=== PATIENT | female | born 1990 | race American Indian/Alaskan Native ===

== ENCOUNTER 2021-07-17 09:00 | Emergency (ER) | payer MEDICAID ==
[2021-07-17 09:07] VITALS: BP 124/78
--- NOTE | 2021-07-17 09:47 | Emergency Department Report ---
ED Female HPI - General Chief complaint: Urogenital-Female Stated complaint: VAGINAL BLEEDING- Time Seen by Provider: 07/17/21 09:31 Source: patient Mode of arrival: Ambulatory Limitations: No Limitations - History of Present Illness Initial comments: During the history and physical examination, I am chaperoned by STEVE BRIONES Patient is a 30-year-old female. She is not known to myself previously. She is 1, para 0. She presents to the ER today with a complaint of painless vaginal bleeding after vigorous sexual intercourse. It is now resolved. She denies additional complaints. She feels like she is back to her baseline MD Complaint: vaginal bleeding -: days(s) Consistency: intermittent Improves with: none Worsens with: none Are you Now?: Yes Associated Symptoms: denies other symptoms, vaginal discharge - Related Data Previous Rx's Medication Instructions Recorded Last Taken Type Vit-Fe Fumar-FA [ 1 tab PO QDAY #30 tablet 07/17/21 Unknown Rx Vitamin] Allergies Allergy/AdvReac Type Severity Reaction Status Date / Time No Known Allergies Allergy Unverified 07/17/21 09:04 ED Review of Systems ROS: Stated complaint: VAGINAL BLEEDING- Other details as noted in HPI Comment: All other systems reviewed and negative Genitourinary: other (Vaginal bleeding.). denies: dysuria, frequency ED Past Medical Hx - Medications Home Medications: Home Medications Medication Instructions Recorded Confirmed Last Taken Type Vit-Fe Fumar-FA [ 1 tab PO QDAY #30 tablet 07/17/21 Unknown Rx Vitamin] ED Physical Exam - General Limitations: No Limitations General appearance: alert, in no apparent distress - Head Head exam: Present: atraumatic, normocephalic - Eye Eye exam: Present: normal appearance, EOMI. Absent: nystagmus - ENT ENT exam: Present: normal exam, normal orophraynx, mucous membranes moist, normal external ear exam - Neck Neck exam: Present: normal inspection, full ROM. Absent: tenderness, meningismus - Respiratory Respiratory exam: Present: normal lung sounds bilaterally. Absent: respiratory distress, wheezes, rales, rhonchi, stridor, decreased breath sounds - Cardiovascular Cardiovascular Exam: Present: regular rate, normal rhythm, normal heart sounds. Absent: bradycardia, tachycardia, irregular rhythm, systolic murmur, diastolic murmur, rubs, gallop - GI/Abdominal GI/Abdominal exam: Present: soft. Absent: distended, tenderness, guarding, rebound, rigid, pulsatile mass - External exam: Present: normal external exam, other (Chaperoned by STEVE BRIONES). Absent: erythema, swelling, lacerations, ecchymosis, bleeding Speculum exam: Present: normal speculum exam. Absent: erythema, vaginal discharge, vaginal bleeding - Extremities Exam Extremities exam: Present: normal inspection, full ROM, other (2+ pulses noted in the bilateral upper and lower extremities. There is no palpable cord. negative Homans sign. Muscular compartments are soft. The pelvis is stable.). Absent: pedal edema, calf tenderness - Back Exam Back exam: Present: normal inspection, full ROM. Absent: tenderness, CVA tenderness (R), CVA tenderness (L), paraspinal tenderness, vertebral tenderness - Neurological Exam Neurological exam: Present: alert, oriented X3, normal gait, other (No facial droop. Tongue midline. Extraocular movements intact bilaterally. Facial sensation intact to light touch in V1, V2, V3 distribution bilaterally. 5 and a 5 strength in 4 extremities. Sensation intact to light touch in 4 extremities.). Absent: motor sensory deficit - Psychiatric Psychiatric exam: Present: normal affect, normal mood - Skin Skin exam: Present: warm, dry, intact, normal color. Absent: rash ED Course Vital Signs 07/17/21 09:06 Temperature 98.0 F Pulse Rate 82 Respiratory 16 Rate Blood Pressure 124/78 [Right] O2 Sat by Pulse 98 Oximetry ED Medical Decision Making - Lab Data Result diagrams: 07/17/21 09:54 Vital Signs 07/17/21 09:06 Temperature 98.0 F Pulse Rate 82 Respiratory 16 Rate Blood Pressure 124/78 [Right] O2 Sat by Pulse 98 Oximetry Lab Results 07/17/21 07/17/21 07/17/21 Range/Units 09:54 09:54 09:54 WBC 4.4 L (4.5-11.0) K/mm3 RBC 3.94 (3.65-5.03) M/mm3 Hgb 11.6 (10.1-14.3) gm/dl Hct 35.9 (30.3-42.9) % MCV 91 (79-97) fl MCH 30 (28-32) pg MCHC 33 (30-34) % RDW 14.3 (13.2-15.2) % Plt Count 304 (140-440) K/mm3 HCG, Quant 4319 H (0-4) mIU/mL Urine Color (Yellow) Urine Turbidity (Clear) Urine pH (5.0-7.0) Ur Specific [place] (1.003-1.030) Urine Protein (Negative) mg/dL Urine Glucose (UA) (Negative) mg/dL Urine Ketones (Negative) mg/dL Urine Blood (Negative) Urine Nitrite (Negative) Urine Bilirubin (Negative) Urine Urobilinogen (<2.0) mg/dL Ur Leukocyte Esterase (Negative) Urine WBC (Auto) (0.0-6.0) /HPF Urine RBC (Auto) (0.0-6.0) /HPF U Epithel Cells (Auto) (0-13.0) /HPF Urine Mucus /HPF Blood Type B POSITIVE Antibody Screen Negative 07/17/21 Range/Units 11:52 WBC (4.5-11.0) K/mm3 RBC (3.65-5.03) M/mm3 Hgb (10.1-14.3) gm/dl Hct (30.3-42.9) % MCV (79-97) fl MCH (28-32) pg MCHC (30-34) % RDW (13.2-15.2) % Plt Count (140-440) K/mm3 HCG, Quant (0-4) mIU/mL Urine Color Yellow (Yellow) Urine Turbidity Clear (Clear) Urine pH 7.0 (5.0-7.0) Ur Specific [place] 1.012 (1.003-1.030) Urine Protein <15 mg/dl (Negative) mg/dL Urine Glucose (UA) Neg (Negative) mg/dL Urine Ketones Neg (Negative) mg/dL Urine Blood Lg (Negative) Urine Nitrite Neg (Negative) Urine Bilirubin Neg (Negative) Urine Urobilinogen < 2.0 (<2.0) mg/dL Ur Leukocyte Esterase Neg (Negative) Urine WBC (Auto) 2.0 (0.0-6.0) /HPF Urine RBC (Auto) 2.0 (0.0-6.0) /HPF U Epithel Cells (Auto) 5.0 (0-13.0) /HPF Urine Mucus Few /HPF Blood Type Antibody Screen - Radiology Data Radiology results: report reviewed, image reviewed ULTRASOUND OBSTETRIC INDICATION / CLINICAL INFORMATION: Painless vaginal bleeding. TECHNIQUE: Transabdominal. COMPARISON: None available. FINDINGS: GESTATIONAL SAC: Well-defined oval shape and intrauterine in location. YOLK SAC: No significant abnormality. EMBRYO/FETUS: No significant abnormality. - [place]-Rump Length = 0.63 cm = 6 weeks, 3 day(s). - Heart Rate, beats per minute (if present) = 100 ADNEXA: No significant abnormality. FREE FLUID: None. ADDITIONAL FINDINGS: None. IMPRESSION: 1. Single, living intrauterine with estimated sonographic age of 6 weeks, 3 day(s). Signer Name: Tushar Bocanegra MD Signed: 07/17/2021 9:52 AM Workstation Name: [id number] - Medical Decision Making Differential diagnosis, including but not limited to: Bacteriuria, urinary tract infection, threatened miscarriage, encounter for test, encounter for ultrasound Assessment and plan: 30-year-old female, who was afebrile, with reassuring vital signs, Rh+, urinalysis not requiring antibiotics, ultrasound shows IUP, stable CBC, soft benign belly, patient in no acute distress. This is most likely a threatened miscarriage. Rest, pelvic rest, outpatient follow-up, return precautions including cautions. She is not bleeding on my pelvic exam at this time. I discussed this with the patient. She articulated understanding. All questions answered Critical care attestation.: If time is entered above; I have spent that time in minutes in the direct care of this critically ill patient, excluding procedure time. ED Disposition Clinical Impression: Threatened miscarriage in early Disposition: 01 HOME / SELF CARE / HOMELESS Is pt being admited?: No Does the pt Need Aspirin: No Condition: Good Instructions: Threatened Miscarriage Additional Instructions: Please take the vitamins as directed. Rest, avoid heavy lifting and strenuous physical activity. Avoid sexual activity. Laboratory studies were unremarkable today. Ultrasound and intrauterine , at 6 weeks and 3 days. Patient most likely having a form of threatened miscarriage. There is no specific medication treatment for this. Treatment is rest, avoidance of heavy lifting, and avoidance of sexual activity. Please follow-up with your outpatient [facility] doctor within the next week for outpatient care. Please return to the emergency room right away with new pain, worsened pain, migration of pain, rectal vomiting, change in mental status, confusion, inability to tolerate liquid feeds, bleeding more than 2 pads soaked per hour, or any new, worsened or different symptoms not present on the initial emergency room evaluation Prescriptions: Vit-Fe Fumar-FA [ Vitamin] 1 tab PO QDAY #30 tablet Referrals: [facility] [Provider Group] - 3-5 Days Forms: Work/School Release Form(ED)
[2021-07-17 10:24] LABS: Hematocrit 35.9 % (30.3-42.9); Hemoglobin 11.6 gm/dl (10.1-14.3); Mean Corpuscular HGB Conc 33 % (30-34); Mean Corpuscular Volume 91 fl (79-97); Platelet Count 304 K/mm3 (140-440); Red Blood Count 3.94 M/mm3 (3.65-5.03); Red Cell Distribution Width 14.3 % (13.2-15.2)
--- NOTE | 2021-07-17 10:56 | Ultrasound Report ---
ULTRASOUND OBSTETRIC INDICATION / CLINICAL INFORMATION: Painless vaginal bleeding. TECHNIQUE: Transabdominal. COMPARISON: None available. FINDINGS: GESTATIONAL SAC: Well-defined oval shape and intrauterine in location. YOLK SAC: No significant abnormality. EMBRYO/FETUS: No significant abnormality. - [place]-Rump Length = 0.63 cm = 6 weeks, 3 day(s). - Heart Rate, beats per minute (if present) = 100 ADNEXA: No significant abnormality. FREE FLUID: None. ADDITIONAL FINDINGS: None. IMPRESSION: 1. Single, living intrauterine with estimated sonographic age of 6 weeks, 3 day(s). Signer Name: Tushar Bocanegra MD Signed: 07/17/2021 10:52 AM Workstation Name: [id number]
[2021-07-17 12:14] LABS: Bilirubin,Urine NEG (Negative); Blood,Urine LG (Negative); Color,Urine Yellow (Yellow); Mucus,Urine FEW /HPF; Protein,Urine <15 mg/dL mg/dL (Negative); Urobilinogen,Urine < 2.0 mg/dL (<2.0)
== END 2021-07-17 13:35 | disposition home or self-care (01) ==
LOC: ED 09:00
DX: O20.0 Threatened abortion (principal); Z3A.01 Less than 8 weeks gestation of pregnancy
CPT/HCPCS: 36415; 76801; 81001; 84702; 85027; 86850; 86900; 86901

== ENCOUNTER 2021-07-19 07:52 | Emergency (ER) | payer MEDICAID ==
[2021-07-19 07:57] VITALS: BP 119/75
--- NOTE | 2021-07-19 08:14 | Emergency Department Report ---
ED Female HPI - General Chief complaint: Vaginal Bleeding Stated complaint: Passing clots, Time Seen by Provider: 07/19/21 07:59 Source: patient, old records reviewed Mode of arrival: Ambulatory Limitations: No Limitations - History of Present Illness Initial comments: 30 year-old female presents to the ER today with complaints of vaginal bleeding and being . Patient states that she is about 6 weeks . Last menstrual cycle was 05/20/2021. Patient states that she started with bleeding about 4 days ago. She states that she thought it was related to her having sexual intercourse the night before. It was mild at the time, but then by Saturday bleeding got worse. She did come here to the hospital for the bleeding. She had labs as well as an ultrasound done at the time she was seen. She states that she followed up with her [facility]UR[facility] T[facility]OR the following day and had repeat labs and an ultrasound. She states that she was supposed to follow-up today with her PROFESSIONAL NURSING TUTOR, around 11:00 but last night she started passing large clots including this morning and so she decided come here. She states that since the bleeding started she has been changing about 1-2 pads per day. She reports minor abdominal cramping. She denies any UTI symptoms. She denies any fever or chills. She is G9, P3 AB 5. Patient was seen here in 07/17/2021 --she had OB ultrasound showed live IUP measuring 6 weeks 3 days, quantitative hCG measured 4319 and her Rh type is B+. Complaint: vaginal bleeding -: days(s) - Related Data Previous Rx's Medication Instructions Recorded Last Taken Type Vit-Fe Fumar-FA [ 1 tab PO QDAY #30 tablet 07/17/21 Unknown Rx Vitamin] Allergies Allergy/AdvReac Type Severity Reaction Status Date / Time No Known Allergies Allergy Unverified 07/17/21 09:04 ED Review of Systems ROS: Stated complaint: Passing clots, Other details as noted in HPI Comment: All other systems reviewed and negative Constitutional: denies: chills, diaphoresis, fever, malaise, weakness Eyes: denies: eye pain, eye discharge, vision change ENT: denies: ear pain, throat pain, dental pain, hearing loss, epistaxis, congestion Respiratory: denies: cough, shortness of breath, wheezing Cardiovascular: denies: chest pain, palpitations Gastrointestinal: abdominal pain. denies: nausea, vomiting, diarrhea, constipation, hematemesis, melena, hematochezia Genitourinary: other (vag bleeding ). denies: urgency, dysuria, frequency, hematuria, discharge, abnormal menses, dyspareunia Musculoskeletal: denies: back pain, joint swelling, arthralgia Skin: denies: rash, lesions, change in color, change in hair/nails, pruritus Neurological: denies: headache, weakness, numbness, paresthesias, confusion, abnormal gait, vertigo Psychiatric: denies: anxiety, depression, auditory hallucinations, visual hallucinations, homicidal thoughts, suicidal thoughts ED Past Medical Hx - Medications Home Medications: Home Medications Medication Instructions Recorded Confirmed Last Taken Type Vit-Fe Fumar-FA [ 1 tab PO QDAY #30 tablet 07/17/21 Unknown Rx Vitamin] ED Physical Exam - General Limitations: No Limitations ED Course Vital Signs 07/19/21 07/19/21 07/19/21 07:55 07:57 10:36 Temperature 98.7 F Pulse Rate 114 H 96 H Respiratory 15 Rate Blood Pressure 119/75 O2 Sat by Pulse 100 Oximetry ED Medical Decision Making - Lab Data Result diagrams: 07/19/21 09:41 - Medical Decision Making labs reviewed -- CBC unremarkable. Patient quant HCG today is 663.9. On 07/17 it was 4319. Given drop in HCG levels, pt likely having miscarriage. Discussed results with patient. She states she was able to reschedule her OBGYN appt for july 26. Recommend she keeps her appointment, as OBGYN will need to continue monitoring HCG levels and make sure she does not need D&C. Informed patient that is likely to continue to bleed and have cramps. She understands to return to ED if her bleeding significantly worsens. Pt not toxic or ill appearing and not in any significant distress. Her VS stable. Patient expressed understanding of all instructions and agreed with plan. Pt was stable at time of discharge. Critical care attestation.: If time is entered above; I have spent that time in minutes in the direct care of this critically ill patient, excluding procedure time. ED Disposition Clinical Impression: Miscarriage Disposition: HOME / SELF CARE / HOMELESS Is pt being admited?: No Does the pt Need Aspirin: No Condition: Stable Instructions: Miscarriage, Onqw-pb-Hint Additional Instructions: Based on work up today, it appears that you are having a miscarriage. Your quantitative hCG dropped from 4319 to 663.9. I recommend that you continue to follow up with your OBGYN to continue monitoring your HCG. You can take tylenol and or ibuprofen as needed for pain. Return to ED if worse Referrals: PRIMARY CARE, [Primary Care Provider] - 3-5 Days Time of Disposition: 10:32
[2021-07-19 10:19] LABS: Basophils % (Auto) 1.1 % (0.0-1.8); Eosinophils % (Auto) 0.1 % (0.0-4.3); Hematocrit 35.5 % (30.3-42.9); Hemoglobin 11.4 gm/dl (10.1-14.3); Lymphocytes # (Auto) 0.3 K/mm3 (1.2-5.4); Lymphocytes % (Auto) 7.1 % (13.4-35.0); Mean Corpuscular HGB Conc 32 % (30-34); Mean Corpuscular Volume 91 fl (79-97); Monocytes # (Auto) 0.7 K/mm3 (0.0-0.8); Monocytes % (Auto) 14.9 % (0.0-7.3); Platelet Count 273 K/mm3 (140-440); Red Blood Count 3.88 M/mm3 (3.65-5.03); Red Cell Distribution Width 14.2 % (13.2-15.2)
== END 2021-07-19 10:36 | disposition home or self-care (01) ==
LOC: ED 07:52
DX: O03.9 Complete or unspecified spontaneous abortion without complication (principal); Z3A.01 Less than 8 weeks gestation of pregnancy
CPT/HCPCS: 36415; 84702; 85025; 99283

== ENCOUNTER 2021-12-26 17:30 | Emergency (ER) | payer MEDICAID ==
[2021-12-26 20:14] VITALS: BP 157/92
== END 2021-12-27 07:00 | disposition left against medical advice (07) ==
LOC: ED 17:30
DX: J01.90 Acute sinusitis, unspecified (principal); Z53.21 Procedure and treatment not carried out due to patient leaving prior to being seen by health care provider